=== PATIENT | female | born 1950 | race Caucasian/White ===

== ENCOUNTER 2017-05-12 04:02 | Inpatient (IN) | payer SELFPAY ==
[2017-05-12] MEDS: ONDANSETRON 4 MG INJ IV (05:33)
[2017-05-12] MEDS: SODIUM CHLORIDE 0.9% 1L BAG IV* (05:33)
[2017-05-12] MEDS: morphine 4 MG/ML VIAL IV (05:33)
[2017-05-12 05:49] LABS: ADD MAN DIFF? NO
[2017-05-12] MEDS: SOD CHLORIDE 0.9% 500 ML IV (06:03)
[2017-05-12 06:08] LABS: WHITE BLOOD COUNT 15.5 10^3/ul (4.8-10.8)
[2017-05-12 06:08] LABS: BASOPHIL # 0.1 10^3/ul (0.0-0.1); BASOPHILS % 0.3 % (0.0-2.0); EOSINOPHILS % 0.1 % (0.0-7.0); HEMATOCRIT 39.3 % (37.0-47.0); HEMOGLOBIN 13.4 g/dl (12.0-16.0); LYMPHOCYTES # 0.8 10^3/ul (0.8-2.9); LYMPHOCYTES % 5.4 % (15.0-51.0); MEAN CORPUSCULAR HEMOGLOBIN 28.4 pg (29.0-33.0); MEAN CORPUSCULAR HGB CONC 34.1 g/dl (32.0-37.0); MEAN CORPUSCULAR VOLUME 83.3 fl (82.0-101.0); MEAN PLATELET VOLUME 9.7 fl (7.4-10.4); MONOCYTE # 0.8 10^3/ul (0.3-0.9); MONOCYTES % 5.4 % (0.0-11.0); NEUTROPHIL # 13.7 10^3/ul (1.6-7.5); NEUTROPHILS % 88.3 % (39.0-77.0); PLATELET COUNT 319 10^3/UL (140-415); RED BLOOD COUNT 4.72 10^6/ul (4.20-5.40)
[2017-05-12 06:24] LABS: ALANINE AMINOTRANSFERASE 31 IU/L (13-69); ALBUMIN 4.4 g/dl (3.3-4.9); ALBUMIN/GLOBULIN RATIO 1.51; ALKALINE PHOSPHATASE 107 IU/L (42-121); ANION GAP 20 (8-16); ASPARTATE AMINO TRANSFERASE 25 IU/L (15-46); BILIRUBIN,INDIRECT 0.8 mg/dl (0-1.1); BILIRUBIN,TOTAL 0.8 mg/dl (0.2-1.3); BLOOD UREA NITROGEN 16 mg/dl (7-20); CARBON DIOXIDE 25 mmol/L (21-31); CHLORIDE 97 mmol/L (97-110); CREATININE 0.87 mg/dl (0.44-1.00); GLUCOSE 123 mg/dl (70-220); LIPASE 26 U/L (23-300); POTASSIUM 4.3 mmol/L (3.5-5.1); SODIUM 138 mmol/L (135-144); TOTAL PROTEIN 7.3 g/dl (6.1-8.1)
[2017-05-12 06:29] LABS: LACTIC ACID 1.9 mmol/L (0.5-2.0)
[2017-05-12 06:37] LABS: ADD UMIC YES; UR ASCORBIC ACID NEGATIVE (NEGATIVE); UR BACTERIA FEW /HPF (NONE SEEN); UR BILIRUBIN (Dip) NEGATIVE (NEGATIVE); UR BLOOD (Dip) 3+ mg/dL (NEGATIVE); UR CLARITY SLIGHTLY CLOUDY (CLEAR); UR COLOR YELLOW (YELLOW); UR GLUCOSE (Dip) NEGATIVE (NEGATIVE); UR KETONES (Dip) NEGATIVE (NEGATIVE); UR LEUKOCYTE ESTERASE (Dip) 1+ Leu/ul (NEGATIVE); UR MUCUS MODERATE /HPF (NONE SEEN); UR NITRITE (Dip) NEGATIVE (NEGATIVE); UR RBC 8 /HPF (0-5); UR SPECIFIC GRAVITY (Dip) 1.019 (1.003-1.030); UR SQUAMOUS EPITHELIAL CELL FEW /HPF (FEW); UR TOTAL PROTEIN (Dip) 1+ mg/dl (NEGATIVE); UR UROBILINOGEN (Dip) 1+ mg/dL (NEGATIVE); UR WBC 9 /HPF (0-5)
[2017-05-12] MEDS ORDERED: BUPIVACAINE 0.25%/EPI (MDV) 50 ML VIAL INJ (07:00)
[2017-05-12] MEDS: CEFTRIAXONE 1 GM/50 ML (PMX) 50 ML IVPB (07:02)
[2017-05-12] MEDS: HYDROmorphONE 0.5 MG/0.5 ML SYG IV ×3 (08:10→17:34)
[2017-05-12] MEDS: metroNIDAZOLE 500 MG/NS (PMX) 100 ML IVPB (08:57)
[2017-05-12] MEDS: PIPER-TAZO 3.375 GM IV (PMX) 100 ML IVPB ×2 (12:21→18:09)
[2017-05-12] MEDS ORDERED: HYDROCODONE/APAP (5/325) TAB PO (12:30)
[2017-05-12] MEDS ORDERED: NACL 0.9% 3 ML SYG IV (12:30)
[2017-05-12] MEDS: SOD CHLORIDE 0.45% 1,000 ML IV (13:22)
[2017-05-12] MEDS ORDERED: MEPERIDINE 25 MG INJ IV (18:30)
[2017-05-12] MEDS ORDERED: HYDROmorphONE (0.2 MG/ML) 10ML SYG IV ×2 (18:30)
[2017-05-12] MEDS ORDERED: OXYCODONE/ACETAMINOPHEN (5/325) TAB PO ×2 (18:30)
[2017-05-12] MEDS ORDERED: METOCLOPRAMIDE 10 MG INJ IV (18:30)
[2017-05-12] MEDS ORDERED: MIDAZOLAM 1 MG/ML 2 ML INJ IV (18:30)
[2017-05-12] MEDS ORDERED: hydrALAzine 20 MG INJ IV (18:30)
[2017-05-12] MEDS ORDERED: EPHEDrine SULFATE 50 MG/5 ML SYG IV (18:30)
[2017-05-12] MEDS ORDERED: FENTAnyl 50 MCG/ML VIAL IV ×3 (18:30)
[2017-05-12] MEDS ORDERED: DIPHENHYDRAMINE 50 MG INJ IV (18:30)
[2017-05-12] MEDS ORDERED: ONDANSETRON 4 MG INJ IV (18:30)
[2017-05-12] MEDS ORDERED: LABETALOL HCL 20MG INJ IV (18:30)
[2017-05-12] MEDS ORDERED: NEOSTIGMINE 3 MG/3 ML SYRINGE ×2 (18:31→19:17)
[2017-05-12] MEDS ORDERED: SUCCINYLCHOLINE CHLORIDE 100 MG/5 ML SYG IV (18:31)
[2017-05-12] MEDS ORDERED: ROCURONIUM 50 MG INJ (18:31)
[2017-05-12] MEDS ORDERED: MEPERIDINE 100 MG INJ (18:31)
[2017-05-12] MEDS ORDERED: PROPOFOL 20 ML (18:31)
[2017-05-12] MEDS ORDERED: GLYCOPYRROLATE 0.4 MG INJ ×2 (18:31→19:17)
[2017-05-12] MEDS ORDERED: LIDOCAINE 2% (SDV) 5 ML INJ (18:31)
[2017-05-12] MEDS ORDERED: METOCLOPRAMIDE 10 MG INJ (19:16)
[2017-05-12] MEDS ORDERED: ONDANSETRON 4 MG INJ (19:16)
[2017-05-12] MEDS ORDERED: morphine 2 MG INJ IV (20:00)
[2017-05-12] MEDS: HYDROmorphONE (0.2 MG/ML) 10ML SYG IV (20:11)
[2017-05-13] MEDS: PIPER-TAZO 3.375 GM IV (PMX) 100 ML IVPB ×5 (00:29→23:51)
[2017-05-13] MEDS: OXYCODONE/ACETAMINOPHEN (5/325) TAB PO ×4 (00:35→20:41)
[2017-05-13] MEDS: SOD CHLORIDE 0.45% 1,000 ML IV ×2 (00:36→06:01)
[2017-05-13 05:16] LABS: ADD MAN DIFF? NO
[2017-05-13 05:22] LABS: BASOPHILS % 0.2 % (0.0-2.0); EOSINOPHILS % 0.2 % (0.0-7.0); HEMATOCRIT 33.2 % (37.0-47.0); HEMOGLOBIN 10.9 g/dl (12.0-16.0); LYMPHOCYTES # 0.6 10^3/ul (0.8-2.9); LYMPHOCYTES % 5.4 % (15.0-51.0); MEAN CORPUSCULAR HEMOGLOBIN 28.2 pg (29.0-33.0); MEAN CORPUSCULAR HGB CONC 32.8 g/dl (32.0-37.0); MEAN CORPUSCULAR VOLUME 85.8 fl (82.0-101.0); MEAN PLATELET VOLUME 9.3 fl (7.4-10.4); MONOCYTE # 0.7 10^3/ul (0.3-0.9); MONOCYTES % 6.2 % (0.0-11.0); NEUTROPHIL # 10.2 10^3/ul (1.6-7.5); NEUTROPHILS % 87.4 % (39.0-77.0); PLATELET COUNT 285 10^3/UL (140-415); RED BLOOD COUNT 3.87 10^6/ul (4.20-5.40); RED CELL DISTRIBUTION WIDTH 13.1 % (11.5-14.5)
[2017-05-13 05:22] LABS: WHITE BLOOD COUNT 11.7 10^3/ul (4.8-10.8)
[2017-05-13 05:57] LABS: ALANINE AMINOTRANSFERASE 25 IU/L (13-69); ALBUMIN 2.9 g/dl (3.3-4.9); ALBUMIN/GLOBULIN RATIO 1.03; ALKALINE PHOSPHATASE 68 IU/L (42-121); ANION GAP 17 (8-16); ASPARTATE AMINO TRANSFERASE 18 IU/L (15-46); BILIRUBIN,INDIRECT 0.5 mg/dl (0-1.1); BILIRUBIN,TOTAL 0.5 mg/dl (0.2-1.3); BLOOD UREA NITROGEN 12 mg/dl (7-20); CALCIUM 8.3 mg/dl (8.4-10.2); CARBON DIOXIDE 22 mmol/L (21-31); CHLORIDE 103 mmol/L (97-110); CREATININE 0.77 mg/dl (0.44-1.00); GLUCOSE 94 mg/dl (70-220); POTASSIUM 3.9 mmol/L (3.5-5.1); SODIUM 138 mmol/L (135-144); TOTAL PROTEIN 5.7 g/dl (6.1-8.1)
[2017-05-13] MEDS: HYDROmorphONE 0.5 MG/0.5 ML SYG IV (05:57)
[2017-05-14 05:21] LABS: ADD MAN DIFF? NO
[2017-05-14 05:28] LABS: BASOPHILS % 0.2 % (0.0-2.0); EOSINOPHILS # 0.2 10^3/ul (0.0-0.5); EOSINOPHILS % 2.1 % (0.0-7.0); HEMATOCRIT 32.8 % (37.0-47.0); LYMPHOCYTES # 1.1 10^3/ul (0.8-2.9); LYMPHOCYTES % 10.7 % (15.0-51.0); MEAN CORPUSCULAR HEMOGLOBIN 28.3 pg (29.0-33.0); MEAN CORPUSCULAR HGB CONC 33.5 g/dl (32.0-37.0); MEAN CORPUSCULAR VOLUME 84.3 fl (82.0-101.0); MEAN PLATELET VOLUME 9.4 fl (7.4-10.4); MONOCYTE # 0.8 10^3/ul (0.3-0.9); NEUTROPHIL # 7.8 10^3/ul (1.6-7.5); NEUTROPHILS % 78.4 % (39.0-77.0); PLATELET COUNT 381 10^3/UL (140-415); RED BLOOD COUNT 3.89 10^6/ul (4.20-5.40); RED CELL DISTRIBUTION WIDTH 13.1 % (11.5-14.5)
[2017-05-14 05:28] LABS: WHITE BLOOD COUNT 9.9 10^3/ul (4.8-10.8)
[2017-05-14] MEDS: PIPER-TAZO 3.375 GM IV (PMX) 100 ML IVPB ×2 (05:53→12:17)
[2017-05-14] MEDS: ONDANSETRON 4 MG INJ IV (19:49)
[2017-05-14] MEDS: OXYCODONE/ACETAMINOPHEN (5/325) TAB PO (21:16)
[2017-05-15] MEDS: ENOXAPARIN 40 MG/0.4 ML SYG SC (09:13)
[2017-05-15] MEDS: POLYETHYLENE GLYCOL 17 GM PACKET PO (11:27)
[2017-05-15] MEDS: SENNA TAB PO (13:13)
[2017-05-15] MEDS: OXYCODONE/ACETAMINOPHEN (5/325) TAB PO (15:11)
== END 2017-05-15 19:15 | disposition home or self-care (01) | DRG 340 ==
LOC: E/R 04:02 → MS1 08:41
PROC: 0DTJ4ZZ Resection of Appendix, Percutaneous Endoscopic Approach (ICD-10-PCS; principal; 2017-05-12 18:46)
DX: K35.3 Acute appendicitis with localized peritonitis (principal); Z90.710 Acquired absence of both cervix and uterus
CPT/HCPCS: 36415; 74176; 80053; 81001; 83605; 83690; 85025; 87040; 87086; 87400; 88304; 93005; 96365; 96375; 97116; 97161; 97530; 99285-25